=== PATIENT | male | born 1995 | race Caucasian/White ===

== ENCOUNTER 2017-03-26 20:47 | Emergency (ER) | payer OTHER, MEDICAID ==
[2017-03-26] MEDS ORDERED: Alum-Mag Hydrox-Simethicone Susp (30 mL) ONE (21:09)
[2017-03-26 21:25] VITALS: BP 142/78; PULSE 78; RESP 20; TEMP 98.4; O2SAT 98
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
--- NOTE | 2017-03-27 08:33 | RAD ---
PROCEDURE: Cervical Spine Radiographs. HISTORY: Pain. COMPARISON: None. FINDINGS: BONES: Alignment maintained. No fracture. Dens Intact. DISC SPACES: Normal. SOFT TISSUES: Normal. No prevertebral soft tissue swelling. OTHER FINDINGS: None. IMPRESSION: Normal cervical spine radiographs
== END 2017-03-26 21:39 | disposition home or self-care (01) ==
LOC: C.ER 20:47
DX: S16.1XXA Strain of muscle, fascia and tendon at neck level, initial encounter (principal); V89.2XXA Person injured in unspecified motor-vehicle accident, traffic, initial encounter